=== PATIENT | male | born 1955 | race Hispanic/Latino ===

== ENCOUNTER → 2020-05-26 | Day surgery (SDC) | payer MEDICARE ==
[2020-05-21 09:08] LABS: BASOPHILS # (AUTO) 0.1 (0.0-0.1); BASOPHILS % 1.1 % (0.0-1.0); EOSINOPHILS # (AUTO) 0.1 (0.0-0.4); EOSINOPHILS % 2.3 % (0.0-6.0); HEMATOCRIT 44.8 % (38.2-49.6); HEMOGLOBIN 15.2 g/dL (14.0-18.0); LYMPHOCYTES # (AUTO) 2.1 (1.0-3.2); LYMPHOCYTES % 34.6 % (18.0-39.1); MEAN CORPUSCULAR HGB CONC 33.9 g/dL (31-35); MEAN CORPUSCULAR VOLUME 94.3 fL (81-99); MONOCYTES # (AUTO) 0.4 (0.2-0.8); MONOCYTES % 6.8 % (4.4-11.3); NEUTROPHILS # (AUTO) 3.4 (2.1-6.9); PLATELET COUNT 198 x10e3/uL (140-360); RED BLOOD COUNT 4.75 x10e6/uL (4.3-5.7); RED CELL DISTRIBUTION WIDTH 12.1 % (11.7-14.4)
[~2020-05-26] MED LIST: BUPIVACAINE HCL 0.5% INJ 30 ML VIAL INJ ONE; CEFAZOLIN SOD 1 GM/NS 50ML 50 ML IV ONE; DEXAMETHASONE SOD PHOS INJ 4 MG/ML VIAL ONE; LIDOCAINE HCL 2% JELLY 5 ML TUBE ONE; ONDANSETRON HCL INJ 2MG/ML 2ML 2 MG/ML VIAL ONE; PROPOFOL IV EMULSION 10 MG/ML 20 ML VIAL ONE; SEVOFLURANE INHAL SOLN 250 ML PEN BTL ONE
[2020-05-26 08:45] VITALS: BP 128/74
== END | disposition home or self-care (01) ==
LOC: OR 05:27
PROVIDERS: ATTEND Podiatrist Foot & Ankle Surgery
DX: D16.31 Benign neoplasm of short bones of right lower limb (principal); Z01.810 Encounter for preprocedural cardiovascular examination; Z01.812 Encounter for preprocedural laboratory examination; Z20.822 Contact with and (suspected) exposure to COVID-19
CPT/HCPCS: 28104; 36415; 71046; 85025; 88305; 89060; 93005; J0690; J1100; J2001; J2405; J2704; U0002; 88304; 88311

== ENCOUNTER 2024-11-06 13:20 | Emergency (ER) | payer MEDICARE ==
[~2024-11-06] VITALS: Ht 172.7 cm; Wt 111.1 kg
[2024-11-06 13:25] VITALS: PULSE 115; RESP 16; TEMP 98.8
[2024-11-06] MEDS ORDERED: LIDOCAINE 1% 10 ML MULTIDOSE VIAL IJ ONE (15:34)
[2024-11-06] MEDS: LIDOCAINE 1% 5ML-MPF INJ ONE (15:35)
[2024-11-06] MEDS ORDERED: CELEBREX100 MG PO (16:28)
[2024-11-06 16:44] VITALS: BP 136/94; PULSE 76; RESP 18; TEMP 98.2; O2SAT 98
== END 2024-11-06 16:46 | disposition home or self-care (01) ==
LOC: ER 13:51
DX: S61.213A Laceration without foreign body of left middle finger without damage to nail, initial encounter (principal); E11.9 Type 2 diabetes mellitus without complications; W27.0XXA Contact with workbench tool, initial encounter; Y92.9 Unspecified place or not applicable; Z96.653 Presence of artificial knee joint, bilateral
CPT/HCPCS: 99283